=== PATIENT | female | born 1975 | race Caucasian/White ===

== ENCOUNTER 2017-02-15 03:45 | Emergency (ER) | payer SELFPAY ==
[~2017-02-15] VITALS: Ht 152.4 cm; Wt 52.0 kg
[2017-02-15 04:43] VITALS: BP 152/114
[2017-02-15] MEDS ORDERED: FLOXIN OTIC0.3 % OD (04:43)
[2017-02-15] MEDS ORDERED: AMOXICILLIN500 MG PO (04:43)
== END 2017-02-15 04:53 | disposition home or self-care (01) | DRG 156 ==
LOC: ED 03:45
PROC: 09C0XZZ Extirpation of Matter from Right External Ear, External Approach (ICD-10-PCS; principal; 2017-02-15)
DX: T16.1XXA Foreign body in right ear, initial encounter (principal)

== ENCOUNTER 2024-04-12 15:32 | Observation (INO) | payer SELFPAY ==
[2024-04-12] VITALS (34 sets, daily range): BP systolic 130–187; BP diastolic 87–140
[~2024-04-12] VITALS: Ht 157.5 cm; Wt 53.6 kg
[~2024-04-12 15:32] MED LIST: AMOXICILLIN500 MG PO; FLOXIN OTIC0.3 % OD
[2024-04-12] MEDS ORDERED: MORPHINE SULFATE 4 MG/ML VIAL IV ONE ×3 (16:00→23:10)
[2024-04-12] MEDS ORDERED: ONDANSETRON HCl 4 MG/2 ML SDV IV ONE (16:00)
[2024-04-12] MEDS ORDERED: SODIUM CHLORIDE 0.9% 1,000 ML IV ONE (16:00)
[2024-04-12 16:03] LABS: BASO% 0.5 % (0-3); EOS% 1.5 % (0-8); HEMATOCRIT 48.9 % (37.0-47.0); IMMATURE GRANULOCYTES 0.2 % (0.0-5.0); MEAN CORPUSCULAR HGB 32.8 pG CALC (26.0-32.0); MEAN CORPUSCULAR HGB CONC 33.1 g/dL CAL (32.0-36.0); MONO% 6.5 % (2-13); NEUT# 7.11 thou/uL (2.00-7.15); NEUT% 76.3 % (42-76); RED BLOOD COUNT 4.94 mill/uL (4.20-5.60); RED CELL DISTRI WIDTH 13.8 % (11.5-15.5)
[2024-04-12 16:04] LABS: HEMOGLOBIN 16.2 g/dl (12.0-16.0)
[2024-04-12 16:15] LABS: ALBUMIN 4.3 g/dL (3.2-5.0); ALKALINE PHOSPHATASE 58 u/l (38-126); BUN 7 mg/dL (7-17); BUN/CREATININE RATIO 14 (12-20 (CALC)); CHLORIDE 103 mmol/l (95-108); CREATININE 0.5 mg/dL (0.5-1.0); ESTIMATED GFR 115 ML/MIN (>=90 (CALC)); POTASSIUM 3.9 mmol/l (3.5-5.1); SGOT/AST 26 u/l (14-36); SODIUM 136 mmol/l (137-146); TOTAL PROTEIN 7.9 g/dL (6.3-8.2)
[2024-04-12 16:16] LABS: ANION GAP 9 (6-22 (CALC)); BILIRUBIN, TOTAL 0.4 mg/dL (0.02-1.3); CARBON DIOXIDE 28 mmol/l (22-30)
[2024-04-12 16:33] LABS: URINE BILIRUBIN - DIPSTICK Negative (NEGATIVE); URINE BLOOD DIPSTICK Negative (NEGATIVE); URINE GLUCOSE - DIPSTICK Negative (NEGATIVE); URINE KETONE 40 mg/dL (NEGATIVE); URINE LEUK ESTERASE Negative (NEGATIVE); URINE NITRITE - DIPSTICK Negative (Negative); URINE PH 5.5 (4.5-8.0); URINE PROTEIN - DIPSTICK 30 mg/dL (NEG-TRACE); URINE SPECIFIC GRAVITY >=1.030
[2024-04-12 16:34] LABS: URINE COLOR Yellow
[2024-04-12 16:38] LABS: URINE CALCIUM OXALATE CRYSTALS MANY lpf; URINE SQUAMOUS EPITHELIAL CELL FEW EPI/hpf (0-FEW)
[2024-04-12] MEDS ORDERED: HYDROmorphone HCL 2 MG/AMP IV ONE (17:45)
[2024-04-12] MEDS ORDERED: PROMETHAZINE HCL 25 MG/ML AMP IV ONE (20:05)
[2024-04-12] MEDS ORDERED: LISINOPRIL10 MG PO (22:28)
[2024-04-12] MEDS ORDERED: ONDANSETRON4 MG PO (22:31)
[2024-04-12] MEDS ORDERED: DEXAMETHASONE SODIUM PHOSPHATE 4 MG/VIAL SDV IV ONE (22:55)
[2024-04-12] MEDS ORDERED: ACETAMINOPHEN 325 MG/TAB PO PRN (22:55)
[2024-04-12] MEDS ORDERED: MORPHINE SULFATE 4 MG/ML VIAL IV PRN (22:55)
[2024-04-12] MEDS ORDERED: LACTATED RINGER'S 1,000 ML IV PRN (22:55)
[2024-04-12] MEDS ORDERED: Pantoprazole Sodium 40 MG VIAL (Protonix) IV SCH (22:55)
[2024-04-12] MEDS ORDERED: MAGNESIUM HYDROXIDE 30 ML UDC PO PRN (22:55)
[2024-04-12] MEDS ORDERED: ONDANSETRON HCl 4 MG/2 ML SDV IV PRN (22:55)
[2024-04-12] MEDS ORDERED: HYDROmorphone HCL 2 MG/AMP IV PRN (23:00)
[2024-04-12] MEDS ORDERED: hydrALAZINE HCL 20 MG/ML VIAL(1 ML) IV PRN (23:00)
[2024-04-12] MEDS ORDERED: DILAUDID2 MG PO (23:04)
[2024-04-12] MEDS ORDERED: PROCHLORPERAZINE EDISYLATE 10 MG/2 ML SDV IV ONE (23:10)
[2024-04-12] MEDS ORDERED: hydrALAZINE HCL 20 MG/ML VIAL(1 ML) IV ONE (23:10)
[2024-04-13 03:32] VITALS: BP 128/92
[2024-04-13 04:04] VITALS: BP 128/92
[2024-04-13 05:20] LABS: BASO% 0.3 % (0-3); EOS% 0.3 % (0-8); HEMATOCRIT 46.3 % (37.0-47.0); HEMOGLOBIN 15.4 g/dl (12.0-16.0); IMMATURE GRANULOCYTES 0.2 % (0.0-5.0); LYMPH% 4.8 % (15-41); MEAN CORPUSCULAR HGB 33.3 pG CALC (26.0-32.0); MEAN CORPUSCULAR HGB CONC 33.3 g/dL CAL (32.0-36.0); MONO% 1.5 % (2-13); NEUT# 9.78 thou/uL (2.00-7.15); NEUT% 92.9 % (42-76); RED BLOOD COUNT 4.63 mill/uL (4.20-5.60); RED CELL DISTRI WIDTH 13.8 % (11.5-15.5)
[2024-04-13 05:43] LABS: ALBUMIN 3.7 g/dL (3.2-5.0); BILIRUBIN, TOTAL 0.4 mg/dL (0.02-1.3); CHOLESTEROL HDL RATIO 4.1 (<4.4 (CALC)); CREATININE 0.5 mg/dL (0.5-1.0); MAGNESIUM 1.9 mg/dL (1.6-2.3); POTASSIUM 4.2 mmol/l (3.5-5.1); TOTAL PROTEIN 6.5 g/dL (6.3-8.2)
[2024-04-13 07:24] VITALS: BP 142/86
[2024-04-13 08:44] VITALS: BP 142/86
[2024-04-13] MEDS ORDERED: LISINOPRIL 10 MG/TAB PO SCH (09:00)
[2024-04-13] MEDS ORDERED: ENOXAPARIN SODIUM 40 MG/0.4 ML SYR SC SCH (21:00)
== END 2024-04-13 13:30 | disposition home or self-care (01) | DRG 440 ==
LOC: ED 15:32 → ED-I 22:38 → ED 22:48 → MS2 22:49
PROVIDERS: Family Medicine; ADMIT Student in an Organized Health Care Education/Training Program; ATTEND Student in an Organized Health Care Education/Training Program
DX: K85.90 Acute pancreatitis without necrosis or infection, unspecified (principal); I10 Essential (primary) hypertension; F17.200 Nicotine dependence, unspecified, uncomplicated
CPT/HCPCS: G0378; J2470; Q9967